=== PATIENT | male | born 1970 | race Caucasian/White ===

== ENCOUNTER 2020-05-28 13:05 | Outpatient (CLI) | payer BC, SELFPAY ==
[2020-05-28 13:32] LABS: Basophils Percent Auto 0.4 % (0.2-1.2); Eosinophils Absolute Auto 0.1 K/mm3 (0-0.3); Eosinophils Percent Auto 1.5 % (0-4.4); Hematocrit 47.5 % (42.0-52.0); Hemoglobin 16.5 g/dL (14.0-18.0); Immature Granulocyte Absolute 0.06 K/mm3 (0.00-0.031); Immature Granulocyte Percent A 0.7 % (0-0.5); Lymphocytes Absolute Auto 2.02 K/mm3 (0.9-3.2); Lymphocytes Percent Auto 22.1 % (18.3-44.2); Mean Corpuscular HGB Conc 34.7 g/dl (32-36); Mean Corpuscular Hemoglobin 30.7 pg (26-34); Mean Corpuscular Volume 88.3 fl (80-100); Mean Platelet Volume 9.2 fl (7.4-10.4); Monocytes Absolute Auto 0.7 K/mm3 (0.1-0.6); Monocytes Percent Auto 7.9 % (2.6-8.5); Neutrophils Absolute Auto 6.2 K/mm3 (1.3-6.7); Neutrophils Percent Auto 67.4 % (45.5-73.1); Platelet Count Result 254 k/mm3 (150-375); Red Blood Count 5.38 M/mm3 (4.6-6.20); Red Cell Distribution Width 11.9 % (11.5-14.5); White Blood Count 9.1 K/mm3 (4.5-10.0)
[2020-05-28 16:35] LABS: Prothrombin Time 12.6 Seconds (11.1-14.7)
[2020-05-28 16:45] LABS: Alanine Aminotransferase 62 U/L (4-50); Albumin Level 4.6 g/dL (3.5-5.1); Alkaline Phosphatase 76 U/L (38-126); Aspartate Amino Transferase 38 U/L (17-59); Bilirubin,Total 0.7 mg/dL (0.2-1.3); Blood Urea Nitrogen 14 mg/dL (9-20); Calcium 9.6 mg/dL (8.4-10.2); Carbon Dioxide 23 mmol/L (22-30); Chloride 103 mmol/L (98-107); Estimated Glomerular Filt Rate > 60; Glucose 138 mg/dL (75-110); Potassium 4.1 mmol/L (3.4-5.0); Sodium 136 mmol/L (137-145)
[2020-06-02 18:45] LABS: Thrombin Time 18 sec (13-19)
== END 2020-05-28 13:06 | disposition home or self-care (01) ==
PROVIDERS: PCP Family Medicine; Visit Provider Internal Medicine Hematology & Oncology
DX: D69.9 Hemorrhagic condition, unspecified (principal)
CPT/HCPCS: 36415; 80053; 85025; 85240; 85245; 85246; 85247; 85610; 85670; 85730; 86038

== ENCOUNTER 2020-05-29 14:30 | Outpatient (CLI) | payer BC, SELFPAY ==
[2020-05-29 17:17] LABS: Fibrinogen 168 mg/dl (215-510)
== END 2020-05-29 14:31 | disposition home or self-care (01) ==
LOC: ANHLAB 14:31
PROVIDERS: PCP Family Medicine; Visit Provider Internal Medicine Hematology & Oncology
DX: D69.9 Hemorrhagic condition, unspecified (principal)
CPT/HCPCS: 36415; 85384

== ENCOUNTER → 2020-06-19 08:47 | Outpatient (CLI) | payer BC, SELFPAY ==
--- NOTE | ~2020-06-19 | CT_ITS ---
EXAMINATION: CT abdomen wo/w con EXAM DATE: 06/19/2020 09:20 INDICATION: Elevated liver enzymes, right upper quadrant pain, skin discoloration. Hypertension. TECHNIQUE: Spiral CT of the abdomen was performed without and then with intravenous injection of 100 mL Omnipaque 350. Axial, coronal and sagittal images were reviewed. The dose-length product (DLP) for this examination was 1908.43 mGy-cm. The exposure was tailored according to patient size (auto m A exposure control), and iterative reconstruction (ASIR) was used as additional dose reduction techni que. There is no prior study for comparison. FINDINGS: There is hepatic steatosis without suspicious focal lesion identified. There is a right adr enal gland adenoma measuring 1.5 cm. Spleen, pancreas are unremarkable. Gallbladder is unremarkable. No biliary obstruction. Portal and splenic veins are patent. Kidneys enhance symmetrically. Ther e is no hydronephrosis. There is no nephrolithiasis. There is no retroperitoneal lymphadenopathy. The appendix is not positively visualized. There is no pericecal inflammatory change to suggest appe ndicitis. The stomach and small bowel are unremarkable. There is expected amount of colonic stool. No free intraperitoneal gas. The heart is normal in size. There are no pericardial or pleural e ffusions. The lung bases are unremarkable. The bones are unremarkable. IMPRESSION: 1. Hepatic steatosis. 2. Right adrenal gland adenoma. 3. No acute abdominal findings. Reviewed, dictated and finalized at location A.
[2020-06-19 09:09] LABS: Estimated Glomerular Filt Rate > 60
== END ==
PROVIDERS: PCP Family Medicine; Visit Provider Internal Medicine Hematology & Oncology
DX: K76.0 Fatty (change of) liver, not elsewhere classified (principal); D35.01 Benign neoplasm of right adrenal gland
CPT/HCPCS: 36415; 74170; Q9967

== ENCOUNTER 2021-09-02 16:18 | Outpatient (CLI) | payer OTHER, SELFPAY ==
--- NOTE | ~2021-09-02 | XR_ITS ---
XR_CERV2-3V_CR DATE: 09/02/2021 16:43 INDICATION: Neck pain TECHNIQUE: AP, lateral and open mouth views COMPARISON: None FINDINGS: There is straightening of the cervical spine. C1 and C2 are normally aligned and the odontoid process is intact. No fracture or dislocation or loc ked facet. No prevertebral soft tissue swelling. There is slight anterolisthesis at C4-5. Status post anterior cervical spine surgical fusion at C5-7. There is moderate degenerative disc disease and slight anterolisthesis at C7-T. IMPRESSION: Straightening Status post anterior surgical spine fusion at C5-7 Slight anterolisthesis at C4-5, C7-T1 Moderate degenerative disc at C7-T1 Reviewed, dictated and finalized at Location A. Reviewed, dictated and finalized at location B.
== END 2021-09-02 16:19 ==
PROVIDERS: PCP Family Medicine; Visit Provider Family Medicine
DX: Z98.1 Arthrodesis status (principal); M47.813 Spondylosis without myelopathy or radiculopathy, cervicothoracic region
CPT/HCPCS: 72040

== ENCOUNTER 2023-04-27 01:03 | Day surgery (SDC) | payer BC, SELFPAY ==
[2023-04-22 12:55] VITALS: BMI 33.1
--- NOTE | 2023-04-22 13:16 | PC.NURSE ---
Report to the Outpatient Waiting Room, entrance under the green pavilion located off [facility], at time 9:30 on date 04/27/23. Planned Procedure Time: 11:30. Time changes happen often and if your time is changed the preop area will call you the afternoon before. - You and your visitor will be asked to self-screen and do not enter if you have any COVID symptoms. - A mask is optional within the hospital at this time. Patients may have clear liquids (water, carbonated beverages, clear teas, apple juice) until 3 hours prior to surgery (8:30) with a maximum of 20 ounces. - No food from midnight until time of surgery Take the following medications with a SIP of water the morning of surgery: AMLODIPINE, METHOCARBAMOL IF NEEDED DO NOT STOP ANY OF YOUR OTHER PRESCRIPTION MEDICATIONS PRIOR TO SURGERY ?EXCEPT THE FOLLOWING Medications to discontinue per physician: VITAMINS/SUPPLEMENTS Date to take last dose: 04/23/[address] WILKINSON REGARDING NAPROXEN Please no make-up, nail vietnamese, hairspray, perfume, deodorant, or body powder the day of surgery. No jewelry (including any body piercings) or valuables the day of surgery, leave them at home. Please take a shower or bath the night before, or the morning of, surgery with an antibacterial soap. Wear comfortable, loose fitting clothing. - Jewelry must be removed prior to entering the operating room. Rings and piercings that are not removed may be cut off. - The hospital will not accept responsibility for valuables. - Please leave all valuables, including medications, at home the day of surgery. If you are going home after surgery, a licensed motor pool driver must drive you home. - NO public transportation without another adult if you receive anesthesia. - We recommend that an adult stay with you for 24 hours following discharge. - We also recommend that you do not drive, make important decision, drink alcoholic beverages, or take any drugs that were not prescribed by your health care provider for at least 24 hours after your discharge time. Follow any additional instructions given to you from your surgeon. If you or anyone in your household have experienced Covid symptoms in the past week, please notify your surgeon or the nurse liaison at the phone number below for possible testing. Telephone instructions given to PT - BRENDEN MAHARAJ and asked if any additional questions and then verbalized understanding. Patient advised to call surgeon office or pre surgery nurse liaison [phone] if any additional questions.
--- NOTE | 2023-04-26 16:04 | PM.IMHP ---
H&P: HPI History of Present Illness Date/Time: 04/26/23 16:04 Chief Complaint: nasal obstruction nasal congestion septal deviation turbinate hypertrophy Narrative: planned procedure Review of Systems Review of Systems: All systems reviewed & are unremarkable except as noted in HPI and below PMFSH Past Medical History Medical History Anxiety Blunt trauma of neck Carpal tunnel syndrome on both sides Chronic neck and back pain Dyslipidemia Essential (primary) hypertension Head injury due to trauma History of COVID-19 07/2020 Insomnia Migraine Surgical History Surgical History H/O neck surgery 2011 and 2013 History of appendectomy 1985 History of carpal tunnel release b/l - 2005 History of repair of ACL left - 2014 History of tonsillectomy 1992 Family History Family History Father Hypertension Lipidemia Mother Lipidemia Hypertension Diabetes mellitus Other Family history of arthritis Family history of cardiovascular disease Family history of coronary artery disease Family history of malignant neoplasm Social History Social History Smoking packs per day: 1 Smoking cigarettes per day: 20.0 Years smoked: 15 Smoking pack-years: 15.00 Smoking status: Former smoker Tobacco type: cigarettes Second hand tobacco smoke exposure: No Smoking end date: 11/22/97 Alcohol intake: current Drinks per week: 7 Substance use: never Substance use type: does not use Lack of Transportation: No Lack of Food: Never True Current Housing: I Have Housing Concerned About Future Housing: No Difficulty Paying Gas/Electric Bills: No Difficulty Paying for Meds: No Currently Unemployed: No Education: Decline to Answer Difficulty w/ Childcare or Family Care: No Living arrangements: with family Occupation/Education: occupation Gender identity (if verbalized by the patient): Male Spiritual care concerns: No Agree to blood products: Yes Meds Home Medications and Allergies Home Medications Medication Instructions Recorded Confirmed Type eszopiclone 3 mg tablet 3 mg PO .QHS PRN insomnia #90 tabs 08/26/22 04/22/23 Rx naproxen 500 mg tablet 500 mg PO BID PRN pain #60 tabs 12/11/22 04/22/23 Rx pravastatin 20 mg tablet 20 mg PO QHS #90 tabs 01/18/23 04/22/23 Rx fluticasone propionate 50 1 - 2 spray intranasal BID #16 mL 01/25/23 04/22/23 Rx mcg/actuation nasal spray,suspension (Flonase Allergy Relief) lisinopril 40 mg tablet 40 mg PO DAILY #90 tabs 02/12/23 04/22/23 Rx amlodipine 5 mg tablet 5 mg PO DAILY #90 tabs 02/15/23 04/22/23 Rx amitriptyline 50 mg tablet 50 mg PO QHS #90 tabs 03/17/23 04/22/23 Rx methocarbamol 750 mg tablet 750 mg PO TID PRN back pain #90 04/08/23 04/22/23 Rx tabs fexofenadine-pseudoephedrine ER 1 tablet PO DAILY PRN nasal 04/15/23 04/22/23 Rx 180 mg-240 mg tablet,ext.release congestion #30 tabs 24 hr (Carissa-D 24 Hour) cholecalciferol (vitamin D3) 125 125 mcg PO DAILY 04/22/23 04/22/23 History mcg (5,000 unit) tablet (Vitamin D3) multivitamin 1 tablet PO DAILY 04/22/23 04/22/23 History psyllium husk 0.52 gram capsule 0.52 g PO DAILY 04/22/23 04/22/23 History (Daily Fiber) Allergies Allergy/AdvReac Type Severity Reaction Status Date / Time ciprofloxacin Allergy Unknown Difficulty Verified 04/22/23 12:57 Breathing mushroom Allergy Difficulty Verified 04/22/23 13:25 Breathing Exam Narrative: septal deviation turbinate hypertrophy Assessment and Plan Assessment and plan (1) Nasal turbinate hypertrophy: Code(s): J34.3 - Hypertrophy of nasal turbinates Status: Acute Assessment and Plan: plan OR endoscopic assisted septoplasty inferior turbinate s
[2023-04-27] VITALS (9 sets, daily range): BP systolic 119–134; BP diastolic 66–88; PULSE 81–101; RESP 12–16; TEMP 36.4–36.7; O2SAT 91–99
--- NOTE | 2023-04-27 07:20 | WPDHPUPDATE1 ---
History and Physical Update Update Date/Time: 04/27/23 07:20 History and Physical has been reviewed, including an updated exam of the patient. There are NO changes in the patient's condition. Risks, benefits, and alternatives have been discussed and questions answered. Patient agrees to proceed with procedure.
[2023-04-27] MEDS: LACTATED RINGERS 1,000 ML 30 ML IV CONT ×2 (10:40→12:58)
[2023-04-27] MEDS: ACETAMINOPHEN 500 MG TABLET 1000 MG PO (10:40)
--- NOTE | 2023-04-27 11:25 | WPDANESEPPF ---
Anes - Initial Pre Proc Eval Procedure: Operation Date: 04/27/23 12:15 Proposed Procedures p Endoscopic Septoplasty, - Preston Marcum MD s Bilateral Inferior Turbinectomy with Outfracture - Preston Marcum MD Date/Time: 04/27/23 11:25 Surgeon: Preston Marcum MD Pre Op Diagnosis: septal deviation, turbinate hypertrophy Patient Data Age: 52 Gender: M Height: 1.73 m Weight: 99 kg Last Vital Signs Temp 36.7 C 04/27/23 10:55 Pulse 86 04/27/23 10:55 Resp 12 04/27/23 10:55 BP 131/80 04/27/23 10:55 Pulse Ox 97 04/27/23 10:55 O2 Del Method Room Air 04/27/23 10:55 Allergies Allergy/AdvReac Type Severity Reaction Status Date / Time ciprofloxacin Allergy Unknown Difficulty Verified 04/27/23 10:54 Breathing mushroom Allergy Difficulty Verified 04/27/23 10:54 Breathing Home Medications Medication Instructions Recorded Confirmed Type eszopiclone 3 mg tablet 3 mg PO .QHS PRN insomnia #90 tabs 08/26/22 04/27/23 Rx naproxen 500 mg tablet 500 mg PO BID PRN pain #60 tabs 12/11/22 04/27/23 Rx pravastatin 20 mg tablet 20 mg PO QHS #90 tabs 01/18/23 04/27/23 Rx fluticasone propionate 50 1 - 2 spray intranasal BID #16 mL 01/25/23 04/27/23 Rx mcg/actuation nasal spray,suspension (Flonase Allergy Relief) lisinopril 40 mg tablet 40 mg PO DAILY #90 tabs 02/12/23 04/27/23 Rx amlodipine 5 mg tablet 5 mg PO DAILY #90 tabs 02/15/23 04/27/23 Rx amitriptyline 50 mg tablet 50 mg PO QHS #90 tabs 03/17/23 04/27/23 Rx methocarbamol 750 mg tablet 750 mg PO TID PRN back pain #90 04/08/23 04/27/23 Rx tabs fexofenadine-pseudoephedrine ER 1 tablet PO DAILY PRN nasal 04/15/23 04/27/23 Rx 180 mg-240 mg tablet,ext.release congestion #30 tabs 24 hr (Carissa-D 24 Hour) cholecalciferol (vitamin D3) 125 125 mcg PO DAILY 04/22/23 04/27/23 History mcg (5,000 unit) tablet (Vitamin D3) multivitamin 1 tablet PO DAILY 04/22/23 04/27/23 History psyllium husk 0.52 gram capsule 0.52 g PO DAILY 04/22/23 04/27/23 History (Daily Fiber) Patient hx anesthesia problems: none Family hx anesthesia problems: none Results Review: All pre-operative results and documents have been reviewed as part of the pre-operative evaluation. [facility] Past Medical History Medical History Anxiety Blunt trauma of neck Carpal tunnel syndrome on both sides Chronic neck and back pain Dyslipidemia Essential (primary) hypertension Head injury due to trauma History of COVID-19 07/2020 Insomnia Migraine Surgical History Surgical History H/O neck surgery 2011 and 2013 History of appendectomy 1985 History of carpal tunnel release b/l - 2005 History of repair of ACL left - 2015 History of tonsillectomy 1992 Family History Family History Father Hypertension Lipidemia Mother Lipidemia Hypertension Diabetes mellitus Other Family history of arthritis Family history of cardiovascular disease Family history of coronary artery disease Family history of malignant neoplasm Social History Social History Smoking packs per day: 1 Smoking cigarettes per day: 20.0 Years smoked: 15 Smoking pack-years: 15.00 Smoking status: Former smoker Tobacco type: cigarettes Second hand tobacco smoke exposure: No Smoking end date: 11/22/97 Alcohol intake: current Drinks per week: 7 Substance use: never Substance use type: does not use Lack of Transportation: No Lack of Food: Never True Current Housing: I Have Housing Concerned About Future Housing: No Difficulty Paying Gas/Electric Bills: No Difficulty Paying for Meds: No Currently Unemployed: No Education: Decline to Answer Difficulty w/ Childcare or Family Care: No Living arrangements: with
[2023-04-27] MEDS: ceFAZolin 2 GM/D5W 50 ML 2 GM/50 ML BAG IVPB (11:40)
[2023-04-27] MEDS: OXYMETAZOLINE HCL 0.05% NAS 15 ML BTL (*BKC) 1 SPRAY NASAL (12:02)
[2023-04-27] MEDS: LIDO 1%/EPINEPHRINE 1:100,000 20 ML VIAL INFILTRATE (12:34)
[2023-04-27] MEDS: MUPIROCIN 2% OINT 22 GM TUBE 1 APPLIC EACH NARE (12:35)
--- NOTE | 2023-04-27 13:25 | P.OP_ITS ---
Procedure Note - Detailed Date of Procedure 04/27/23 Pre-op Diagnosis septal deviation, turbinate hypertrophy Post-op Diagnosis Same Procedure Performed Septoplasty turbinate reduction wit Surgeon Preston Marcum MD Anesthesia General Indications see above Findings almost absent left anterior mucosa large tear on that side likely the right side was completely intact. Much straighter normal airway following procedure Description of Procedure patient identified consent verified. Patient brought operating room. Time-out performed. General anesthesia induced endotracheal tube secured. Patient prepped draped positioned procedure confirm 2nd time-out performed. Afrin- soaked pledgets placed allowed to sit for 5 minutes then removed. Severe right caudal left very caudal most footplate deviation. 0 degree endoscope utilized hemitransection incision made when elevating the left flap there was a large tear just behind the it really at the start of the mucosa behind the squamous epithelium. Left flap elevated osteotome utilized to outline the right portion of the removed right flap elevated no tears. Deviated septum removed. At this point the hemitransection incision was lowered bit and portion the caudal septum was removed on the left. Turbinates reduced in the submucosal plane then outfracture. The hemitransection incision was then closed with 5 interrupted 5 0 fast gut sutures. Pineda splints were placed and sutured anteriorly 3-0 mattressed suture. Blood loss about 10 cc. I performed all dictated portions of procedure. Turbinates reduced microdebrider turbinate blade and outfractured [place] elevator. 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 I performed all dictated portions care the patient given Anesthesiology patient taken to PACU. Estimated Blood Loss -15.0 Drains No Packing No Pathology None sent Complications No immediate complications Condition Stable Disposition PACU [facility] Billing Surgery - Charge Forward: Surgery Billing
[2023-04-27] MEDS: oxyCODONE HCL (*CRX) 5 MG TAB IR PO (14:06)
== END 2023-04-27 14:54 | disposition home or self-care (01) ==
PROVIDERS: PCP Family Medicine; Visit Provider Otolaryngology
PROC: (CPT 30520; principal; 2023-04-27 12:15)
PROC: (CPT 30520; 2023-04-27 12:15)
DX: J34.2 Deviated nasal septum (principal); J34.3 Hypertrophy of nasal turbinates; I10 Essential (primary) hypertension; E78.5 Hyperlipidemia, unspecified; F41.9 Anxiety disorder, unspecified; Z87.891 Personal history of nicotine dependence; E66.9 Obesity, unspecified; Z68.33 Body mass index [BMI] 33.0-33.9, adult
CPT/HCPCS: 30520; 30140; 93005; A9270; J0330; J0690; J1100; J1170; J2250; J2370; J2405; J2704; J7120

== ENCOUNTER 2024-11-08 10:20 | Outpatient (CLI) | payer BC, SELFPAY ==
--- NOTE | ~2024-11-08 | MR_ITS ---
MRI of the cervical spine Clinical History: Pain Technique: Axial T2-weighted and gradient images, and sagittal T1-weighted, T2-weighted, and STIR marina ges were acquired. Findings: There is no acute fracture or subluxation of the cervical spine. There is anterior interbod y fusion from C5 to C6. There is also fusion across the C6-C7 disc space. No suspicious bone marrow s ignal abnormality seen. At C2-C3, there is no disc bulge or herniation. No spinal canal stenosis, cord compression, or neural foraminal narrowing. At C3-C4, there is mild disc osteophyte complex with mild canal stenosis but no shasta cord compressio n. There is bilateral neural foraminal narrowing with bilateral facet arthropathy. At C4-C5, there is no disc bulge or herniation. There is minimal canal stenosis without shasta cord co mpression. There is right neural foraminal narrowing. Left neural foramen preserved. There is right f acet arthropathy. At C5-C6, there is no disc bulge or herniation. No spinal canal stenosis or cord compression. Probabl e minimal left neural foraminal narrowing. Right neural foramen preserved. At C6-C7, there is no disc bulge or herniation. No spinal canal stenosis, cord compression, or neural foraminal narrowing. At C7-T1, there is bilateral neural foraminal narrowing, right worse than left. No canal stenosis or cord compression. No abnormal signal seen in the spinal cord. Paravertebral soft tissues are unremarkable. Impression: Postoperative fusion from C5 to C7, as above. [id number] degenerative spondylosis overall, as detailed above. Reviewed, dictated and finalized at [facility]. [facility] Impression: Postoperative fusion from C5 to C7, as above. [id number] degenerative spondylosis overall, as detailed above.
== END 2024-11-08 10:21 | disposition home or self-care (01) ==
PROVIDERS: PCP Family Medicine; Visit Provider Nurse Practitioner Family
DX: M47.812 Spondylosis without myelopathy or radiculopathy, cervical region (principal); M43.22 Fusion of spine, cervical region
CPT/HCPCS: 72141

== ENCOUNTER 2025-08-10 14:11 | Outpatient (CLI) | payer BC, SELFPAY ==
--- NOTE | ~2025-08-10 | XR_ITS ---
EXAMINATION: XR shoulder RT min 2V, 08/10/2025 14:19 CDT HISTORY: Pain in right shoulder, surgery on right shoulder, pain x 2 COMPARISON: No comparisons available. Findings: No acute fracture or malalignment. No significant degenerative changes. Soft tissues unremarkable. Impression: No acute fracture or malalignment. Reviewed, dictated and finalized at location A. Impression: No acute fracture or malalignment.
--- NOTE | ~2025-08-10 | XR_ITS ---
EXAMINATION: XR knee LT 3V, 08/10/2025 14:19 CDT HISTORY: Pain in left knee, knee surgery in 2016, pain x 2 months COMPARISON: No comparisons available. Findings: Postsurgical changes, no fracture is identified No significant degenerative changes. Soft tissues unremarkable. Impression: No acute fracture or malalignment. Reviewed, dictated and finalized at location A. Impression: No acute fracture or malalignment.
== END 2025-08-10 14:12 | disposition home or self-care (01) ==
LOC: GOSHIMG 14:14
PROVIDERS: PCP Nurse Practitioner Family; Visit Provider Nurse Practitioner Family
DX: M25.562 Pain in left knee (principal); M25.511 Pain in right shoulder
CPT/HCPCS: 73030; 73562

== ENCOUNTER 2025-08-16 00:44 | Day surgery (SDC) | payer BC, SELFPAY ==
[2025-08-02 08:56] VITALS: BMI 32.7
[2025-08-16 12:35] VITALS: BP 117/84; PULSE 86; RESP 20; TEMP 36.3; O2SAT 96; BMI 31.0
[2025-08-16] MEDS: LACTATED RINGERS 1,000 ML 150 ML IV CONT (12:46)
--- NOTE | 2025-08-16 13:10 | WPDANESEPPF ---
Anes - Initial Pre Proc Eval Procedure: Operation Date: 08/16/25 13:30 Proposed Procedures p Screening Colonoscopy - Dillon Ellison MD Date/Time: 08/16/25 13:10 Surgeon: Dillon Ellison MD Pre Op Diagnosis: positive cologuard/screening Patient Data Age: 54 Gender: M Height: 1.73 m Weight: 92.5 kg Last Vital Signs Temp 36.3 C L 08/16/25 12:35 Pulse 86 08/16/25 12:35 Resp 20 08/16/25 12:35 BP 117/84 08/16/25 12:35 Pulse Ox 96 08/16/25 12:35 O2 Del Method Room Air 08/16/25 12:35 Allergies Allergy/AdvReac Type Severity Reaction Status Date / Time ciprofloxacin Allergy Unknown Difficulty Verified 08/16/25 12:32 Breathing mushroom Allergy Difficulty Verified 08/16/25 12:32 Breathing Home Medications ?Medication ?Instructions ?Recorded ?Confirmed ?Type cholecalciferol (vitamin D3) 125 125 mcg PO DAILY 04/22/23 08/16/25 History mcg (5,000 unit) tablet (Vitamin D3) multivitamin 1 tablet PO DAILY 04/22/23 08/16/25 History naproxen 500 mg tablet 500 mg PO BID PRN pain #60 tabs 01/05/24 08/10/25 Rx eszopiclone 3 mg tablet 3 mg PO QHS PRN insomnia #30 tabs 12/20/24 08/16/25 Rx alprazolam 1 mg tablet 1 mg PO QHS PRN anxiety #30 tabs 02/27/25 08/10/25 Rx pravastatin 20 mg tablet 20 mg PO QHS #90 tabs 05/04/25 08/16/25 Rx lisinopril 40 mg tablet 40 mg PO DAILY #90 tabs 05/28/25 08/16/25 Rx citalopram 40 mg tablet 40 mg PO DAILY #90 tabs 07/02/25 08/16/25 Rx methylphenidate HCl 54 mg 54 mg PO QAM PRN adhd 08/02/25 08/10/25 History tablet,extended release 24 hr fexofenadine 180 mg tablet 180 mg PO DAILY 08/10/25 08/16/25 History (Carissa Allergy) hydralazine 10 mg tablet 10 mg PO BID #60 tabs 08/10/25 08/16/25 Rx methocarbamol 750 mg tablet 750 mg PO TID PRN back pain #90 08/10/25 08/16/25 Rx tabs prednisone 20 mg tablet 20 mg PO BID #10 tabs 08/10/25 08/16/25 Rx Patient hx anesthesia problems: none Family hx anesthesia problems: none Results Review: All pre-operative results and documents have been reviewed as part of the pre-operative evaluation. [facility] Past Medical History Medical History ADHD (attention deficit hyperactivity disorder) Panic attack History of COVID-07/2020 Chronic neck and back pain Migraine Anxiety Insomnia Dyslipidemia Essential (primary) hypertension Carpal tunnel syndrome on both sides Blunt trauma of neck Head injury due to trauma Surgical History Surgical History History of carpal tunnel release b/l - 2006 H/O neck surgery 2011 and 2013 History of repair of ACL left - 2015 History of tonsillectomy 1992 History of appendectomy 1985 Family History Family History Father Hypertension Lipidemia Mother Lipidemia Hypertension Diabetes mellitus Other Family history of arthritis Family history of cardiovascular disease Family history of coronary artery disease Family history of malignant neoplasm Social History Social History Social History: Caffeine-daily Smoking packs per day: 1 Smoking cigarettes per day: 20.0 Years smoked: 15 Smoking pack-years: 15.00 Smoking status: Former smoker Tobacco type: cigarettes Second hand tobacco smoke exposure: No Smoking end date: 11/22/97 Alcohol intake: current Drinks per week: 10 Substance use: never Substance use type: does not use Lack of Transportation: No Lack of Food: Never True Current Housing: I Have Housing Concerned About Future Housing: No Difficulty Paying Gas/Electric Bills: No Difficulty Paying for Meds: No Currently Unemployed: No Education: Decline to Answer Difficulty w/ Childcare or Family Care: No Living arrangements: with family Occupation/Education: occupation Gender identity (if verbalized by the patient): Male Spiritual care concerns: No Agree to blood products: Yes Anes - Eval Final PreProcedure Day of Procedure 08/16/25 13:10 Patient weight: obese Heart: regular rate and rhythm Lungs: clear to auscultation Airway: Mallampati scale class II Neurological: alert and oriented Last oral intake: >/= 8 hours ASA classification: III Emergent: no Anesthetic plan: proceed Anesthesia type and monitoring: general GIVS and standard monitoring Results Review: All pre-operative results and documents have been reviewed as part of the pre-operative evaluation. Informed Consent: The patient's anesthetic plan and its attendant risks and benefits were discussed with the patient/family/POA. Questions were solicited and answers provided to the satisfaction of the patient/family/POA.
--- NOTE | 2025-08-16 14:02 | PM.HPGS ---
History of Present Illness History of Present Illness Consent: Risks, benefits, and alternatives have been discussed and questions answered. Patient agrees to proceed with procedure. Chief complaint: positive cologuard/screening Narrative: Gabino Abreu is a 54 year old male here for first colonoscopy, + cologuard Review of Systems Review of Systems: All systems reviewed & are unremarkable except as noted in HPI and below PMFSH Past Medical History Medical History (Updated 08/16/25 @ 14:03 by Dillon Ellison MD) Positive colorectal cancer screening using Cologuard test ADHD (attention deficit hyperactivity disorder) Panic attack History of COVID-19 07/2020 Chronic neck and back pain Migraine Anxiety Insomnia Dyslipidemia Essential (primary) hypertension Carpal tunnel syndrome on both sides Blunt trauma of neck Head injury due to trauma Surgical History Surgical History History of carpal tunnel release b/l - 2006 H/O neck surgery 2011 and 2013 History of repair of ACL left - 2014 History of tonsillectomy 1992 History of appendectomy 1984 Family History Family History Father Hypertension Lipidemia Mother Lipidemia Hypertension Diabetes mellitus Other Family history of arthritis Family history of cardiovascular disease Family history of coronary artery disease Family history of malignant neoplasm Social History Social History Social History: Caffeine-daily Smoking packs per day: 1 Smoking cigarettes per day: 20.0 Years smoked: 15 Smoking pack-years: 15.00 Smoking status: Former smoker Tobacco type: cigarettes Second hand tobacco smoke exposure: No Smoking end date: 11/22/97 Alcohol intake: current Drinks per week: 10 Substance use: never Substance use type: does not use Lack of Transportation: No Lack of Food: Never True Current Housing: I Have Housing Concerned About Future Housing: No Difficulty Paying Gas/Electric Bills: No Difficulty Paying for Meds: No Currently Unemployed: No Education: Decline to Answer Difficulty w/ Childcare or Family Care: No Living arrangements: with family Occupation/Education: occupation Gender identity (if verbalized by the patient): Male Spiritual care concerns: No Agree to blood products: Yes Meds Home Medications and Allergies Home Medications ?Medication ?Instructions ?Recorded ?Confirmed ?Type cholecalciferol (vitamin D3) 125 125 mcg PO DAILY 04/22/23 08/16/25 History mcg (5,000 unit) tablet (Vitamin D3) multivitamin 1 tablet PO DAILY 04/22/23 08/16/25 History naproxen 500 mg tablet 500 mg PO BID PRN pain #60 tabs 01/05/24 08/10/25 Rx eszopiclone 3 mg tablet 3 mg PO QHS PRN insomnia #30 tabs 12/20/24 08/16/25 Rx alprazolam 1 mg tablet 1 mg PO QHS PRN anxiety #30 tabs 02/27/25 08/10/25 Rx pravastatin 20 mg tablet 20 mg PO QHS #90 tabs 05/04/25 08/16/25 Rx lisinopril 40 mg tablet 40 mg PO DAILY #90 tabs 05/28/25 08/16/25 Rx citalopram 40 mg tablet 40 mg PO DAILY #90 tabs 07/02/25 08/16/25 Rx methylphenidate HCl 54 mg 54 mg PO QAM PRN adhd 08/02/25 08/10/25 History tablet,extended release 24 hr fexofenadine 180 mg tablet 180 mg PO DAILY 08/10/25 08/16/25 History (Carissa Allergy) hydralazine 10 mg tablet 10 mg PO BID #60 tabs 08/10/25 08/16/25 Rx methocarbamol 750 mg tablet 750 mg PO TID PRN back pain #90 08/10/25 08/16/25 Rx tabs prednisone 20 mg tablet 20 mg PO BID #10 tabs 08/10/25 08/16/25 Rx Allergies Allergy/AdvReac Type Severity Reaction Status Date / Time ciprofloxacin Allergy Unknown Difficulty Verified 08/16/25 12:32 Breathing mushroom Allergy Difficulty Verified 08/16/25 12:32 Breathing Vital Signs Vital Signs - 24 hr 08/16/25 12:35 Temperature 97.3 F L Pulse Rate 86 Respiratory Rate 20 Blood Pressure 117/84 Pulse Oximetry 96 Oxygen Delivery Room Air Exam Const: General: comfortable and no acute distress HENMT: Face/Nose/Sinus: Normal nares present Eyes: General: appearance normal, both eyes and all related structures Neck: Neck: no JVD Resp: Auscultation: clear to auscultation bilaterally Cardio: Rate: regular rate Rhythm: regular rhythm GI: Inspection: non-distended GI Palp: Yes Soft to palpation Skin: General skin exam: normal color Neuro: Speech: normal speech Extrem: General: normal to inspection Psych: Mental Status: mental status grossly normal Assessment and Plan Assessment and plan (1) Positive colorectal cancer screening using Cologuard test: Code(s): R19.5 - Other fecal abnormalities Status: Acute Assessment and Plan: colonoscopy
--- NOTE | 2025-08-16 14:20 | S_PTH ---
PATIENT: Gabino Abreu LOC: [facility]#:[id number] AGE/SX: 54/M ROOM: RE08/16/[address]: Dillon Ellison MD : 1970 BED: DIS: 08/16/2025 SPEC #: [id number] RECD: 08/17/25 08:55 STATUS: KIRTI REBetina #: [id number] VIDA: 08/16/25 14:[address]: Dillon Ellison DEPT: [facility] Surgical RECD BY: Hanna Leal ENTERED: 08/17/25 08:55 SP TYPE: Surgical OTHR DR: Nina Wang, TIMI Tissues: A - Colon Polypectomy B - Colon Polypectomy Procedures: Hematoxylin and Eosin Stain Gross and Microscopic Level 4
[2025-08-16 14:22] VITALS: BP 91/51; PULSE 76; RESP 13; O2SAT 94
[2025-08-16 14:35] VITALS: BP 94/51; PULSE 72; RESP 12; O2SAT 93
[2025-08-16 14:45] VITALS: BP 118/73; PULSE 81; RESP 17; O2SAT 97
== END 2025-08-16 14:55 | disposition home or self-care (01) ==
PROVIDERS: PCP Nurse Practitioner Family; Referring Provider Nurse Practitioner Family; Visit Provider Internal Medicine Gastroenterology
PROC: 0DJD8ZZ Inspection of Lower Intestinal Tract, Via Natural or Artificial Opening Endoscopic (ICD-10-PCS; CPT 45378; principal; 2025-08-16 13:30)
DX: D12.2 Benign neoplasm of ascending colon (principal); K63.5 Polyp of colon; K64.8 Other hemorrhoids; K57.30 Diverticulosis of large intestine without perforation or abscess without bleeding; E78.5 Hyperlipidemia, unspecified; I10 Essential (primary) hypertension; F41.9 Anxiety disorder, unspecified; G47.00 Insomnia, unspecified; F90.9 Attention-deficit hyperactivity disorder, unspecified type; F41.0 Panic disorder [episodic paroxysmal anxiety]; G89.29 Other chronic pain; M54.2 Cervicalgia; M54.9 Dorsalgia, unspecified; E66.9 Obesity, unspecified; Z68.31 Body mass index [BMI] 31.0-31.9, adult; Z79.1 Long term (current) use of non-steroidal anti-inflammatories (NSAID); Z79.52 Long term (current) use of systemic steroids; Z98.890 Other specified postprocedural states; Z98.1 Arthrodesis status; Z87.891 Personal history of nicotine dependence; Z80.9 Family history of malignant neoplasm, unspecified; Z82.49 Family history of ischemic heart disease and other diseases of the circulatory system
CPT/HCPCS: 45385; 88305; J7120

== ENCOUNTER 2025-11-07 14:13 | Outpatient (CLI) | payer BC, SELFPAY ==
--- NOTE | 2025-11-07 14:24 | ECG_ITS ---
Test Date: 2025-11-07 14:39:35 Measurements Intervals Cummings Rate: 69 P: 64 NH: 140 QRS: 41 QRSD: 88 T: 61 QT: 378 QTc: 406 Interpretive Statements SINUS RHYTHM POSSIBLE LEFT ATRIAL ENLARGEMENT POSSIBLE RIGHT VENTRICULAR CONDUCTION DELAY PEAKED T WAVES- CONSIDER HYPERKALEMIA BASELINE ARTIFACT- II, III, AVR, AVL, AVF, V3-V6 ABNORMAL ECG No previous ECG available for comparison Electronically Signed On 11-07-2025 14:46:01 CHEMICAL PLANT MANAGER by Juice Brumfield D.O.
--- OUTSIDE RECORDS SUMMARY | 2025-11-07 16:59 | XMS_ITS | Patient Health Record ---
Author Organization [facility] [facility] Address [address] [place] [address] Care Team Providers Care Electronics Warfare Technician Name Role Phone AMI CRISTY Unavailable [phone] Kira Elizabeth MD Unavailable Unavailable Allergies No Known Allergies Reason For Referral No Information Medications Medication SIG (Take, Route, Frequency, Duration) Notes Start Date End Date Status Lunesta 3 MG 1 tablet immediately before bedtime Orally Once a day Active Amitriptyline HCl 75 MG 1 tablet Orally Once a day Active diazePAM 5 MG 1 tablet as needed O rally Once a day Active Naproxen 250 MG 1 tablet with food o r milk as needed Orally every 12 hrs Active Celecoxib 200 MG 1 capsule Orally Onc e a day Active HYDROcodone-Acetaminophen 5-325 MG 1 tablet as needed Orally every 6 hrs Active Pravastatin Sodium 20 MG 1 tablet Orally Once a day Active Lisinopril-hydroCHLOROthiaz benitez 20-12.5 MG 1 tablet Orally Once a day Active amLODIPine Besylate 5 MG 1 tablet Orally Once a day Active Lisinopril 40 MG 1 tablet Orally Once a day Active busPIRone HCl 10 MG 1 tablet Orally Twic e a day Active Plan Of Treatment No Information Insurance Providers Payer Name Payer Address Payer Phone Subscriber Number Group Number Insured Name Patient Relationship to Insured Coverage Start Date Coverage End Date [facility] [address] [place] [address] [id number] SUBHASH MAHARAJ Self - patient is the insured Medical (General) History Medical History History ICD Code Hypertension Hyperlipidemia GERD Anxiety AC Gobulin factor Surgical History Surgery Date(Month/Year) Appendectomy Bilat carpal tunnel Cervical diskectomy Knee arthroscopy Cervical discectomy /fusion 2012
--- OUTSIDE RECORDS SUMMARY | 2025-11-07 16:59 | XMS_ITS | Clinical Summary ---
Author Organization [facility] Address [address] [place] [address] Phone Care Team Providers Care [facility] Name Role Phone Sari Flanagan MD Primary Care Provider Allergies No known active allergies Medications celecoxib (CELEBREX) 200 mg Oral capsule Take 200 mg by mouth daily. Active amitriptyline (ELAVIL) 75 mg Oral tablet Take 75 mg by mouth nightly as needed. Active eszopiclone (LUNESTA) 3 mg Oral Tab Take 3 mg by mouth nightly as needed. Active busPIRone (BUSPAR) 10 mg Oral tablet Take 10 mg by mouth 2 times daily. Active lisinopril-hydr ochlorothiazide (ZESTORETIC) 20-12.5 mg Oral tablet Take 1 Tab by mouth daily. Active multivitamin (DAILY-SYED) Oral tablet Take 1 Tab by mouth daily. Active glucosamine-cho ndroitin (ARTHX DS) 500-400 mg Oral Cap Take 1 Cap by mouth daily. Active diazepam (VALIUM) 5 mg Oral tablet Take 1 Tab by mouth every 8 hours as needed for Spasm. 100 Tab 0 05/12/2013 Active docusate sodium (COLACE) 100 mg Oral capsule Take 1 Cap by mouth 2 times daily. 60 Cap 2 05/12/2013 Active HYDROcodone-augie taminophen (NORCO) 5-325 mg Oral tablet Take 1-2 Tabs by mouth every 4 hours as needed for Pain, Moderate (For Pain Scale 4-6). 120 Tab 0 05/12/2013 Active pravastatin (PRAVACHOL) 20 mg tablet TAKE 1 TABLET BY MOUTH EVERY DAY 05/08/2020 Active methylPREDNISol one (MEDROL DOSPACK) 4 mg Tablets, Dose Pack TAKE 6 TABLETS ON DAY 1 DIRECTED ON PACKAGE AND DECREASE BY 1 TAB EACH DAY FOR A TOTAL OF 6 DAYS 05/08/2020 Active lisinopriL (PRINIVIL) 40 mg tablet TAKE 1 TABLET BY MOUTH EVERY DAY 05/13/2020 Active amLODIPine (NORVASC) 5 mg tablet TAKE 1 TABLET BY MOUTH EVERY DAY 05/13/2020 Active naproxen (NAPROSYN) 250 mg tablet Take 250 mg by mouth 2 times daily with meals. Active ibuprofen (MOTRIN) 600 mg tablet Take 600 mg by mouth every 6 hours as needed for Pain, Mild. Active Active Problems Problem Noted Date Diagnosed Date AC globulin factor I (fibrinogen) deficiency Encounters Date Type Department Care Team Description 10/09/2025 External Device Data [facility] ABSTRACTION Provider, Abstract 09/25/2025 External Device Data [facility] ABSTRACTION Provider, Abstract 09/19/2025 External Device Data [facility] ABSTRACTION Provider, Abstract 09/19/2025 External Device Data [facility] ABSTRACTION Provider, Abstract from Last 3 Months Family History Medical History Relation Name Comments Diabetes Mother Hypertension Mother Uterine Cancer Mother Relation Name Status Comments Brother Alive Daughter Alive Father Alive Mother Alive Sister 1 Alive Sister 2 Son Alive Social History Tobacco Use Types Packs/Day Years Used Date Smoking Tobacco: Former Cigarettes 0 Q uit: 05/05/1995 Smokeless Tobacco: Never Tobacco Cessation:Counseling Given: Not Answered Alcohol Use Standard Drinks/Week Comments Yes 0 (1 standard drink = 0.6 oz pur e alcohol) socially Sex and Gender Information Value Date Recorded Sex Assigned at Not on file Legal Sex Male 4:30 PM CDT Gender Identity Not on file Sexual Orientation Not on file Last Filed Vital Signs Vital Sign Reading Time Taken Comments Blood Pressure 127/92 12/05/2024 10:55 AM A/C TECHNICIAN Pulse 88 12/05/2024 10:55 AM A/C TECHNICIAN Temperature 37.1 C (98.8 F) 12/05/2024 10:55 AM A/C TECHNICIAN Respiratory Rate 16 05/12/2013 5:00 AM CDT Oxygen Saturation 95% 12/05/2024 10: 55 AM A/C TECHNICIAN Inhaled Oxygen Concentration - - Weight 95.1 kg (209 lb 11.2 oz) 025 10:55 AM A/C TECHNICIAN Height 172.7 cm (5' 8) 12/05/2024 10:5 5 AM A/C TECHNICIAN Body Mass Index 31.88 12/05/2024 10:55 AM A/C TECHNICIAN Plan of Treatment Health Maintenance Due Date Last Done Comments Pre-Diabetes and Diabetes Screening 1970 DTAP/TDAP/TD VACCINES (1 - Tdap) 1988 HEPATITIS B VACCINES (1 of 3 - 19+ 3-dose series) 04/1988 COLORECTAL SCREENING 2014 Colorectal Cancer Screening 2014 FIT-DNA Q 3 years 2014 FIT/FOBT Q 1 year 2014 Flex Sig/CT Colonography Q 5 years 2014 ZOSTER VACCINE (1 of 2) 2019 INFLUENZA VACCINE (#1) 2025 Medical Devices Implanted Type Area Machine Clipper Device Identifier Shelf Expiration Date Model / Serial / Lot Sealant Floseal W/ Adptr 10ml [id number] - [id number] Implanted:Qty : 1 on 05/11/2013 by Kira Elizabeth MD at [facility] Sealant N/A: Spine Cervical Anterior [employer] 08/21/2014 [id number] / / [id number] Danilo [employer] Avs C-Plug 4 Implanted:Qty : 1 on 05/11/2013 by Kira Elizabeth MD at [facility] N/A: Spine Cervical Anterior DANILO- BIO 06/27/2017 [id number] / [id number] / Bend Dynatran Acp Implanted:Qty : 1 on 05/11/2013 by Kira Elizabeth MD at [facility] N/A: Spine Cervical Anterior DANILO- SPINE [id number] / / Bend Fixed Angle Bone Screw, Self-Tapping Implanted:Qty : 4 on 05/11/2013 by Kira Elizabeth MD at [facility] N/A: Spine Cervical Anterior DANILO- SPINE [id number] / / Insurance [employer] BLUE ACCESS CHOICE Advance Directives For more information, please contact: [phone] * Full Code (Latest Code Status on File) Date Activated Date Inactivated Comments 05/11/2013 12:03 PM 05/12/2013 12:16 PM * Full Code Date Activated Date Inactivated Comments 05/11/2013 10:18 AM 05/11/2013 12:03 PM * Full Code Date Activated Date Inactivated Comments 05/11/2013 5:50 AM 05/11/2013 10:18 AM Care Teams [facility] Relationship Specialty Start Date End Date Sari Flanagan MD [address] [place] [address] PCP - General Family Practice 07/09/20
== END 2025-11-07 14:14 | disposition home or self-care (01) ==
LOC: ANHCARD 14:14
PROVIDERS: PCP Nurse Practitioner Family; Visit Provider Orthopaedic Surgery
DX: Z01.818 Encounter for other preprocedural examination (principal); I10 Essential (primary) hypertension; R94.31 Abnormal electrocardiogram [ECG] [EKG]
CPT/HCPCS: 93005